=== PATIENT | male | born 1955 | race Hispanic/Latino ===

== ENCOUNTER 2017-03-12 08:35 | Emergency (ER) | payer SELFPAY ==
[2017-03-12 08:52] VITALS: BP 121/80
== END 2017-03-13 06:17 | disposition left against medical advice (07) ==
LOC: ED 08:35
DX: H92.20 Otorrhagia, unspecified ear (principal); Z53.21 Procedure and treatment not carried out due to patient leaving prior to being seen by health care provider

== ENCOUNTER 2017-10-18 10:27 | Emergency (ER) | payer SELFPAY ==
[2017-10-18 10:50] VITALS: BP 130/82
== END 2017-10-18 18:00 | disposition left against medical advice (07) ==
LOC: ED 10:27
DX: R53.1 Weakness (principal); Z53.21 Procedure and treatment not carried out due to patient leaving prior to being seen by health care provider